=== PATIENT | female | born 1980 | race Hispanic/Latino ===

== ENCOUNTER 2017-12-08 10:08 | Outpatient (CLI) | payer OTHER ==
--- NOTE | 2017-12-08 11:39 | RAD ---
TWO VIEWS RIGHT CALCANEUS: COMPARISON: None. HISTORY: Heel spurs. Heel pain. FINDINGS: Two views of the right calcaneus show no evidence of a fracture or dislocation. No significant heel spur is seen. No degenerative changes are present. IMPRESSION: Unremarkable exam. POS: [facility]
--- NOTE | 2017-12-08 11:40 | RAD ---
TWO VIEWS OF THE LEFT CANCANEUS: COMPARISON: None. HISTORY: Heel spurs and heel pain. FINDINGS: Two views of the left calcaneus show no evidence of fracture or dislocation. No significant calcanea l spur is seen. No degenerative changes are present. IMPRESSION: Unremarkable exam. POS: [facility]
== END 2017-12-08 10:09 | disposition home or self-care (01) ==
LOC: BICRAD 10:08
PROVIDERS: ATTEND Orthopaedic Surgery
DX: M77.31 Calcaneal spur, right foot (principal); M77.32 Calcaneal spur, left foot

== ENCOUNTER 2017-12-21 10:50 | Outpatient (CLI) | payer OTHER ==
--- NOTE | 2017-12-21 11:27 | RAD ---
THREE VIEWS RIGHT HAND: Comparison: 04-20-15 History: Arthritis. Patient had a fracture of the right hand several years ago. FINDINGS: Three views of the right hand shows no evidence of acute fracture or dislocation. There has been inte rval healing of the fifth metacarpal fracture. No degenerative changes are seen. IMPRESSION: No evidence of acute osseous abnormality. POS: [facility]
== END 2017-12-21 10:51 | disposition home or self-care (01) ==
LOC: BICRAD 10:50
PROVIDERS: ATTEND Orthopaedic Surgery
DX: M19.041 Primary osteoarthritis, right hand (principal)